=== PATIENT | male | born 1950 | race Hispanic/Latino ===

== ENCOUNTER 2017-10-19 11:52 | Emergency (ER) | payer OTHER, MEDICARE ==
[2017-10-19 11:53] VITALS: BMI 29.2
--- NOTE | 2017-10-19 12:43 | ED PDOC ---
Lower Extremity Pain/Injury Time Seen by Provider: 10/19/17 12:07 Chief Complaint (Nursing): Lower Extremity Problem/Injury History Per: Patient Additional Complaint(s): Pt. states earlier today while at work he was walking backward and when he had his L leg towards his back he felt a pop in his calf. Pain developed immediately after that. Reports no blunt trauma or fall but has had persistent pain in the L calf. Denies numbness, tingling, SOB, chest pain, hx of DVT or PE. Past Medical History Reviewed: Historical Data, Nursing Documentation, Vital Signs Vital Signs: Last Vital Signs Temp 98.4 F 10/19/17 11:55 Pulse 63 10/19/17 11:55 Resp 20 10/19/17 11:55 BP 147/91 H 10/19/17 11:55 Pulse Ox 98 10/19/17 11:55 - Surgical History Surgical History: Denies: Pacemaker - Family History Family History: States: No Known Family Hx - Home Medications Home Medications: Ambulatory Orders Medication Instructions Recorded traMADol [Ultram] 50 mg PO Q6 PRN 06/04/17 - Allergies Allergies/Adverse Reactions: Allergies Allergy/AdvReac Type Severity Reaction Status Date / Time No Known Allergies Allergy Verified 05/24/17 08:26 Wells Criteria for PE - Wells Criteria for Pulmonary Embolism Clinical Signs and Symptoms of DVT: No P.E is #1 Diagnosis, or Equally Likely: No Heart Rate >100: No Immobilization at least 3 days;Surgery previous 4 weeks: No Previous, objectively diagnosed PE or DVT: No Hemoptysis: No Malignancy w/treatment within 6 months, or palliative: No Total Score: 0 Review of Systems ROS Statement: Except As Marked, All Systems Reviewed And Found Negative Musculoskeletal: Positive for: Leg Pain Physical Exam - Physical Exam Appears: Positive for: Well, Non-toxic, No Acute Distress Skin: Positive for: Normal Color, Warm. Negative for: Rash Eye Exam: Positive for: Normal appearance Cardiovascular/Chest: Positive for: Regular Rate, Rhythm. Negative for: Tachycardia Respiratory: Positive for: Normal Breath Sounds. Negative for: Respiratory Distress Pulses-Dorsalis Pedis (L): 2+ Pulses-Dorsalis Pedis (R): 2+ Extremity: Positive for: Calf Tenderness (L calf), Capillary Refill (< 2 seconds of LEFT lower extremity), Other (FROM actively of L ankle and L knee; no tenderness, swelling, or deformity of L ankle and L knee). Negative for: Pedal Edema (b/l) Neurologic/Psych: Positive for: Alert, Oriented - ECG O2 Sat by Pulse Oximetry: 98 - Radiology X-Ray: Read By Radiologist (L tib/fib x-ray) X-Ray Interpretation: No Acute Disease - Progress ED Course And Treament: Tib/fib x-rays ordered. Offered pain medication but refused. Leg immobilized in knee immobilizer and crutches provided by location and measurement technician. Disposition - Clinical Impression Clinical Impression: Strain of calf muscle - Patient ED Disposition Is Patient to be Admitted: No - Disposition Referrals: Bree Fishman [Outside] Ac Moss III, MD [Staff Provider] - Disposition: Routine/Home Disposition Time: 13:00 Condition: STABLE Additional Instructions: Follow up with orthopedist for possible MRI and further evaluation. Return to ED immediately if symptoms worsen. Instructions: Lower Extremity Muscle Strain (DC) Forms: Bree Lynn ([place]), [facility] ED School/Work Excuse
--- NOTE | 2017-10-19 12:52 | RAD ---
PROCEDURE: Radiographs of the left tibia and fibula. HISTORY: trauma COMPARISON: None available. TECHNIQUE: Frontal and lateral views obtained. FINDINGS: BONES: No fracture or destructive lesion. JOINT SPACES: Unremarkable. OTHER FINDINGS: None. IMPRESSION: Unremarkable radiographs of the left tibia and fibula.
[2017-10-19 16:53] VITALS: BP 125/79; PULSE 75; RESP 16; TEMP 97.9; O2SAT 100
== END 2017-10-19 16:53 | disposition home or self-care (01) ==
LOC: H.ER 11:52
DX: S86.812A Strain of other muscle(s) and tendon(s) at lower leg level, left leg, initial encounter (principal)